=== PATIENT | female | born 1970 | race Caucasian/White ===

== ENCOUNTER 2023-09-07 06:56 | Observation (INO) | payer BC, SELFPAY ==
[2023-09-07] VITALS (10 sets, daily range): BP systolic 126–155; BP diastolic 73–92; PULSE 67–90; RESP 12–20; TEMP 36–36.6; O2SAT 95–100; BMI 35.4; BMI 32.9
--- NOTE | ~2023-09-07 | CT_ITS ---
EXAMINATION: CT ABDOMEN AND PELVIS WITH CONTRAST CLINICAL INFORMATION: Pain COMPARISON: None available. TECHNIQUE: Multidetector volumetric images were obtained from the superior aspect of the liver through the pubic symphysis following administration 85 mL of Omnipaque 350 intravenous contrast. Sagittal and coronal reformatted images were obtained on the technologist's workstation. Oral contrast: No This CT examination was performed using dose optimization techniques as appropriate, variously including the following: *Automated exposure control *Adjustment of mA and/or kV according to patient size (this includes techniques or standardized protocols for targeted exams where dose is matched to indication/reason for exam; i.e. extremities or head) *Use of iterative reconstruction technique DLP: 675 mGy-cm FINDINGS: LUNG BASES: 4 mm nodule at the right lung base. Image 7 anterior. LIVER, GALLBLADDER, AND BILIARY TREE: Generalized low density adjacent the falciform ligament could be a vascular variant. Could be focal fatty change. Low-density lesion with some possible peripheral enhancement on coronal image 42. Measures 1 x 0.6 cm. Probable gallstones in the gallbladder PANCREAS: Unremarkable. SPLEEN: Unremarkable. ADRENAL GLANDS: Small density superior to left adrenal gland may be an exophytic nodule measuring 9 x 6 mm. Differential would include a small node in the region. KIDNEYS AND URETERS: Scattered areas of low attenuation in the kidneys may well represent evolving cystic change. No convincing evidence for solid lesion. There is no evidence for hydronephrosis. BLADDER: Bladder is thick-walled and irregular. Some surrounding soft tissue stranding GASTROINTESTINAL TRACT: The bowel pattern is felt to be nonobstructing. There is no free fluid. The proximal appendix is within normal limits. Distally the appendix is measuring a centimeter. Minimal soft tissue stranding adjacent ABDOMINAL WALL: Small parapelvic local herniation of fat. LYMPH NODES: No bulky adenopathy. VASCULAR: Unremarkable. PELVIC VISCERA: Unremarkable. OSSEOUS STRUCTURES: Unremarkable. CT/CT abdomen pelvis w IV con IMPRESSION: Thick-walled bladder with irregular contour. Cystitis cannot be excluded. The distal appendix measuring up to a centimeter could be mildly edematous with some mild soft tissue stranding adjacent. Correlation recommended clinically here. Otherwise the bowel pattern is nonobstructing. There is no free fluid. Other findings are as described above. Gallstones. Indeterminate areas of decreased attenuation liver. Recommend ultrasound to fully evaluate. 4 mm right basilar lung nodule. Follow-up per Fleischner criteria Small 9 x 6 mm superior left adrenal lesion versus a node immediately adjacent to the left adrenal. Etiology indeterminate. This cannot be said to be simple adenoma on this study Periumbilical herniation of fat. Fleischner guidelines were followed.
[2023-09-07 07:20] LABS: MANUAL DIFF FLAG NO
[2023-09-07 07:23] LABS: Basophils Absolute Auto 0.1 X10*3/uL (0.0-0.2); Basophils Percent Auto 0.5 % (0-2); Eosinophils Absolute Auto 0.2 X10*3/uL (0.0-0.4); Eosinophils Percent Auto 1.4 % (0-4); Hematocrit 42.5 % (37.0-47.0); Hemoglobin 14.8 g/dl (12.0-16.0); Imm Gran Abs Auto 0.04 X10*3/uL (0.00-0.03); Imm Gran Pct Auto 0.4 % (0.0-0.4); Lymphocytes Absolute Auto 0.9 X10*3/uL (1.2-4.9); Lymphocytes Percent Auto 8.2 % (20-40); Mean Corpuscular HGB Conc 34.8 g/dl (31.0-35.0); Mean Corpuscular Hemoglobin 31.1 pg (27.0-33.0); Mean Corpuscular Volume 89.3 fL (80.0-98.0); Mean Platelet Volume 10.8 fL (9.4-12.3); Monocytes Absolute Auto 0.4 X10*3/uL (0.1-1.2); Monocytes Percent Auto 3.6 % (2-11); Neutrophils Absolute Auto 9.4 x10*3/uL (2.0-8.3); Neutrophils Percent Auto 85.9 % (45-73); Platelet Count 217 X10*3/uL (160-400); Red Blood Count 4.76 X10*6/uL (4.20-5.50); Red Cell Distribution Width 12.1 % (11.0-16.0); White Blood Count 10.9 X10*3/uL (4.8-10.8)
--- NOTE | 2023-09-07 07:28 | ED.GENADULT ---
HPI - General Adult General Chief complaint: Abdominal Pain Stated complaint: Severe Abd Pain Time Seen by Provider: 09/07/23 07:27 Source: patient and family (patient's ) Mode of arrival: ambulatory Limitations: no limitations History of Present Illness ED Provider: Ifrah Chu PA-C HPI narrative: Patient is a 52 year old assigned female at with a history of HTN presenting to the emergency department today with abdominal pain, nausea, and vomiting. Patient states that she woke up at midnight with abdominal pain and then without any nausea, she vomited. Now feels nauseous. Patient denies any dizziness, lightheadedness, fever, chills, blurry vision, double vision, loss of vision, chest pain, difficulty breathing, shortness of breath, back pain, night sweats, pain with urination, increased urinary frequency, increased urinary urgency, blood in her urine or stool, syncope or a near syncopal episode, recent trauma or falls, bowel incontinence, bladder incontinence, bowel retention, bladder retention, or any other complaints at this time. Onset (ago): hour(s) Location: abdomen Radiation: non-radiation Severity: mild Severity scale (1-10): 5 Quality: aching Pain Consistency: constant Relieving factors: none Exacerbating factors: none Associated symptoms: nausea/vomiting Treatments prior to arrival: none Related Data Home Medications ?Medication ?Instructions ?Recorded ?Confirmed amlodipine 5 mg-benazepril 20 mg 1 cap PO DAILY 09/07/23 09/07/23 capsule bupropion HCl 300 mg 24 hr tablet, 300 mg PO DAILY 09/07/23 09/07/23 extended release cetirizine 10 mg tablet (Zyrtec) 10 mg PO DAILY PRN Allergy Symptoms 09/07/23 09/07/23 estradiol 0.01% (0.1 mg/gram) 1 g vaginal SUWE@0900 09/07/23 09/07/23 vaginal cream multivitamin 1 tab PO DAILY 09/07/23 09/07/23 Allergies Allergy/AdvReac Type Severity Reaction Status Date / Time No Known Allergies Allergy Verified 09/07/23 07:02 Review of Systems Constitutional: Constitutional: Reports no additional constitutional complaints, Denies chills, Denies fever(s) and Denies night sweats Eyes: Eyes: Reports no additional eye complaints, Denies blurry vision, Denies change in vision, Denies diplopia, Denies eye discharge, Denies loss of vision and Denies eye pain ENT: Denies dizziness Cardiovascular: Cardiovascular: Reports no additional cardiovascular complaints, Denies chest pain, Denies lightheadedness, Denies Loss of Consciousness and Denies dyspnea Respiratory: Respiratory: Reports no additional respiratory complaints and Denies dyspnea Gastrointestinal: Gastrointestinal: Reports no additional gastrointestinal complaints, Reports abdominal pain, Denies melena, Denies hematochezia, Denies change in bowel habits, Denies change in stool character, Reports nausea and Reports vomiting Genitourinary: Genitourinary: Denies hematuria, Denies urinary frequency, Denies dysuria, Denies urinary incontinence, Denies urinary hesitancy and Denies urinary urgency Musculoskeletal: Musculoskeletal: Reports no additional musculoskeletal complaints, Denies numbness and Denies tingling Neurologic: Denies dizziness, Denies loss of vision, Denies numbness and Denies tingling Psychiatric: Psychiatric: Reports no additional psychiatric complaints Endocrine: Endocrine: Reports no additional endocrine complaints Hematologic/Lymphatic: Hematologic/Lymphatic: Reports no additional hematologic/lymphatic complaints Allergic/Immunologic: Allergic/Immunologic: Reports no additional allergic/immunologic complaints [facility] Past Medical History Attestation statement: The following information was validated with the patient. (patient's validated all information) Source: old records reviewed, obtained from family (patient's provided additional history and confirmed the history provided by the patient.) and nursing notes reviewed Surgical History History of Social History Social History Patient Tobacco Use Status: Never used Tobacco Second Hand Smoke Exposure: No Use of substances other than those prescribed or required for medical reasons: No Are you DNR?: No Advance Directives: No Advance Directives Information Provided: No (Declined) Advance Directives on File: No Do you have a plan to hurt others: No Plan Patient : No Physical Exam ED Vital Signs: Vital Signs - 24 hr 09/07/23 07:01 Temperature 97.8 F Pulse Rate 77 Respiratory Rate 20 Blood Pressure 149/92 H Pulse Oximetry 100 Oxygen Delivery Method Room Air BMI result Body Mass Index 35.4 Const General: cooperative, no acute distress, alert and awake Nutritional Appearance: well nourished Orientation/consciousness: patient oriented x3 Limitations: no limitations HENMT Head: Yes normal to inspection and Yes atraumatic Ears: hearing grossly normal bilaterally and external ears normal General nose exam: Normal external nose present, no nasal discharge noted and no epistaxis Face and sinus: Yes normal facial exam, No abrasion and No laceration Mouth: Normal oral and palatal mucosa present, no drooling and no muffled voice Eyes General: appearance normal, both eyes and all related structures Periorbital: periorbital findings normal Eyelids: Yes eyelids normal Conjunctivae: conjunctivae normal Pupils: Equal, round and reactive pupils present EOM: EOMs intact bilaterally Neck Neck: Yes normal visual inspection, Yes full ROM and Yes no lymphadenopathy Chest Chest palpation & inspection: normal inspection of the chest Resp Effort & Inspection: normal respiratory effort and able to speak in complete sentences GI Inspection: Yes normal to inspection Palpation (GI): Soft to palpation, not firm, Tenderness to palpation present (GI) in the LLQ and in the RLQ, no guarding and not rigid Neuro General: patient oriented x3 and moves all extremities Cranial nerves: Yes Equal, round and reactive pupils present Cognition (Neuro): normal cognition Motor exam (neuro): 5/5 motor strength present throughout Sensory Exam: Normal double simultaneous stimulation for sensation Coordination: [id number] test normal Extrem General: Yes normal to inspection, Yes full ROM and Yes capillary refill normal Psych Appearance: grossly normal Mental Status: mental status grossly normal Affect: normal affect Attitude: cooperative Thought process: Normal thought process present Thought content: Normal thought content present Insight: Good insight present (Psych) Medications Administered Generic Name Dose Route Start Last Admin Trade Name Freq PRN Reason Stop Dose Admin Hydromorphone HCl 0.5 mg 09/07/23 11:12 09/07/23 12:02 Hydromorphone Hcl 1 Mg/Ml Syringe SUBCUT 0.5 mg Q4H PRN Administration Pain, Severe (Pain Scale 7-10) Protocol Lactated Ringer's 1,000 mls @ 80 mls/hr 09/07/23 11:15 09/07/23 11:37 Lr IVCONT 80 mls/hr .[id number] SCOT Administration Piperacillin Sod/Tazobactam 50 mls @ 100 mls/hr 09/07/23 12:00 09/07/23 11:57 Sod 3.375 gm/ Sodium Chloride IV 100 mls/hr Q6H SCOT Administration Discontinued Medications Generic Name Dose Route Start Last Admin Trade Name Eden PRN Reason Stop Dose Admin Ceftriaxone Sodium 1 gm/ 50 mls @ 100 mls/hr 09/07/23 10:29 09/07/23 11:50 Sodium Chloride IV 09/07/23 10:58 Infused ONCE ONE Infusion Iohexol 100 ml 09/07/23 08:10 09/07/23 08:10 Iohexol 350 Mg/Ml 100 Ml Infus..Btl IV 09/07/23 08:11 85 ml ONCE ONE Administration Morphine Sulfate 4 mg 09/07/23 07:32 09/07/23 07:39 Morphine Sulfate 4 Mg/Ml Cartridge IVPUSH 09/07/23 07:33 4 mg ONCE ONE Administration Protocol Morphine Sulfate 4 mg 09/07/23 09:22 09/07/23 09:36 Morphine Sulfate 4 Mg/Ml Cartridge IVPUSH 09/07/23 09:23 4 mg ONCE ONE Administration Protocol Ondansetron HCl 4 mg 09/07/23 07:32 09/07/23 07:37 Ondansetron Hcl 4 Mg/2 Ml Vial IVPUSH 09/07/23 07:33 4 mg ONCE ONE Administration Medical Decision Making Medical Decision Making MDM Narrative: Patient is a 52 year old assigned female at with a history of HTN presenting to the emergency department today with abdominal pain, nausea, and vomiting. Patient's physical exam showed lower abdominal pain upon palpation. Patient's blood work showed a minimal elevation of WBC count of 10.9 but were otherwise unremarkable. Patient's urine showed no acute process. Patient's abdomen/pelvis CT showed evidence of early appendicitis. I spoke to the surgical team who agreed to admission and stated they would likely be taking the patient to the OR at 1230. Patient was given multiple doses of IV pain medication as well as IV antibiotics. Patient's clinical presentation is not consistent with sepsis (@1100). I explained my physical exam findings as well as all test results to the patient and the patient's . I answered all questions asked by the patient and the patient's . Patient [and the patient's] verbalized agreement and understanding with this treatment plan and [discharge/transfer/admission]. Differential Diagnosis Differential Diagnoses: The differential diagnosis associated with the presentation includes Appendicitis Diverticulitis Abdominal pain Nausea Vomiting UTI Admission/Observation Consideration of admission/observation: Escalation of care including admission/observation considered Patient admitted to surgical service. Consult Healthcare Provider Management of the patient was discussed with: Land Developer (spoke to the surgical service as noted in the MDM Rationale portion of this note.) Lab Data [facility] Lab Attestation statement: I reviewed the patient's lab results. My interpretation of these results are in the MDM Rationale portion of this note. 09/07/23 07:15 09/07/23 07:15 Labs: Lab Results 09/07/23 09/07/23 09/07/23 Range/Units 07:15 07:25 10:58 WBC 10.9 H (4.8-10.8) X10*3/uL RBC 4.76 (4.20-5.50) X10*6/uL Hgb 14.8 (12.0-16.0) g/dl Hct 42.5 (37.0-47.0) % MCV 89.3 (80.0-98.0) fL MCH 31.1 (27.0-33.0) pg MCHC 34.8 (31.0-35.0) g/dl RDW 12.1 (11.0-16.0) % Plt Count 217 (160-400) X10*3/uL MPV 10.8 (9.4-12.3) fL Immature Gran % (Auto) 0.4 (0.0-0.4) % Neut % (Auto) 85.9 H (45-73) % Lymph % (Auto) 8.2 L (20-40) % [place] % (Auto) 3.6 (2-11) % Eos % (Auto) 1.4 (0-4) % Baso % (Auto) 0.5 (0-2) % Lymph # (Auto) 0.9 L (1.2-4.9) X10*3/uL [place] # (Auto) 0.4 (0.1-1.2) X10*3/uL Eos # (Auto) 0.2 (0.0-0.4) X10*3/uL Baso # (Auto) 0.1 (0.0-0.2) X10*3/uL Abs Immat Gran (auto) 0.04 H (0.00-0.03) X10*3/uL Absolute Neuts (auto) 9.4 H (2.0-8.3) x10*3/uL Absolute Nucleated RBC 0.000 (0.0-0.012) X10*3/uL Nucleated RBC % (auto) 0.0 (0.0-0.2) /100WBC Sodium 140 (135-145) mmol/L Potassium 4.0 (3.3-5.1) mmol/L Chloride 106 (96-108) mmol/L Carbon Dioxide 26 (22-29) mmol/L Anion Gap 12 (12-20) BUN 11 (9-16) mg/dL Creatinine 0.78 (0.5-1.4) mg/dL Estim Creat Clear Calc 87.7 Estimated GFR > 60 Random Glucose 132 H (60-115) mg/dL Lactic Acid 0.7 (0.5-2.0) mmol/L Calcium 10.0 (8.4-10.2) mg/dL Total Bilirubin 0.6 (0.0-1.0) mg/dL Direct Bilirubin 0.2 (0.0-0.5) mg/dL AST 27 (5-31) U/L ALT 41 H (0-31) U/L Alkaline Phosphatase 79 (39-117) U/L Total Protein 7.1 (6.5-8.0) g/dL Albumin 4.5 (3.5-5.0) g/dL Lipase 18 (8-78) U/L Urine Color Yellow Urine Appearance Clear Urine pH 6.5 (5.0-9.0) Ur Specific [place] 1.020 (1.005-1.025) Urine Protein Negative (Neg-Trace) mg/dL Urine Glucose (UA) Negative (Negative) mg/dL Urine Ketones Negative (Negative) mg/dL Urine Blood Negative (Negative) Urine Nitrite Negative (Negative) Ur Leukocyte Esterase Negative (Negative) Blood Type A Negative Antibody Screen NEGATIVE Independent Interpretation I performed an independent interpretation of an: CT Scan Interpretation: My interpretation is in agreement with the radiologist's impression of this imaging study. EXAMINATION: CT ABDOMEN AND PELVIS WITH CONTRAST CLINICAL INFORMATION: Pain COMPARISON: None available. TECHNIQUE: Multidetector volumetric images were obtained from the superior aspect of the liver through the pubic symphysis following administration 85 mL of Omnipaque 350 intravenous contrast. Sagittal and coronal reformatted images were obtained on the technologist's workstation. Oral contrast: No This CT examination was performed using dose optimization techniques as appropriate, variously including the following: *Automated exposure control *Adjustment of mA and/or kV according to patient size (this includes techniques or standardized protocols for targeted exams where dose is matched to indication/reason for exam; i.e. extremities or head) *Use of iterative reconstruction technique DLP: 675 mGy-cm FINDINGS: LUNG BASES: 4 mm nodule at the right lung base. Image 7 anterior. LIVER, GALLBLADDER, AND BILIARY TREE: Generalized low density adjacent the falciform ligament could be a vascular variant. Could be focal fatty change. Low-density lesion with some possible peripheral enhancement on coronal image 42. Measures 1 x 0.6 cm. Probable gallstones in the gallbladder PANCREAS: Unremarkable. SPLEEN: Unremarkable. ADRENAL GLANDS: Small density superior to left adrenal gland may be an exophytic nodule measuring 9 x 6 mm. Differential would include a small node in the region. KIDNEYS AND URETERS: Scattered areas of low attenuation in the kidneys may well represent evolving cystic change. No convincing evidence for solid lesion. There is no evidence for hydronephrosis. BLADDER: Bladder is thick-walled and irregular. Some surrounding soft tissue stranding GASTROINTESTINAL TRACT: The bowel pattern is felt to be nonobstructing. There is no free fluid. The proximal appendix is within normal limits. Distally the appendix is measuring a centimeter. Minimal soft tissue stranding adjacent ABDOMINAL WALL: Small parapelvic local herniation of fat. LYMPH NODES: No bulky adenopathy. VASCULAR: Unremarkable. PELVIC VISCERA: Unremarkable. OSSEOUS STRUCTURES: Unremarkable. CT/CT abdomen pelvis w IV con IMPRESSION: Thick-walled bladder with irregular contour. Cystitis cannot be excluded. The distal appendix measuring up to a centimeter could be mildly edematous with some mild soft tissue stranding adjacent. Correlation recommended clinically here. Otherwise the bowel pattern is nonobstructing. There is no free fluid. Other findings are as described above. Gallstones. Indeterminate areas of decreased attenuation liver. Recommend ultrasound to fully evaluate. 4 mm right basilar lung nodule. Follow-up per Fleischner criteria Small 9 x 6 mm superior left adrenal lesion versus a node immediately adjacent to the left adrenal. Etiology indeterminate. This cannot be said to be simple adenoma on this study Periumbilical herniation of fat. Fleischner guidelines were followed. Dictated By: Rico Koo MD Signed By: Electronically signed by Rico Koo MD 09/07/23 1024 Radiology Impression Discussion of test interpretation with radiology: I have reviewed the radiologist's reading. Independent Historian Clinical information obtained from an independent historian. History obtained from or confirmed by: Spouse (patient's provided additional history and confirmed the history provided by the patient.) Chronic Conditions Patient?s care impacted by: Hypertension Critical Care Time Critical Care Time Critical Care Time: Yes Total Critical Care Time: 81 Attestation: I spent 81 minutes of Critical Care Time with this patient. This does not include time spent on separately reported billable procedures. Discharge Plan Discharge Clinical Impression: Acute appendicitis Patient Disposition: Admitted As Inpatient
[2023-09-07 07:30] LABS: Appearance Urine Clear; Color Urine Yellow; Glucose Urine UA Negative (Negative); Leukocyte Esterase Urine Negative (Negative); Nitrite Urine Negative (Negative); PH 6.5 (5.0-9.0); Urine Blood Negative (Negative); Urine Ketones Negative (Negative); Urine Protein Negative (Neg-Trace)
[2023-09-07 07:37] LABS: Alanine Aminotransferase 41 U/L (0-31); Albumin Level 4.5 g/dL (3.5-5.0); Alkaline Phosphatase 79 U/L (39-117); Anion Gap 12 (12-20); Aspartate Amino Transferase 27 U/L (5-31); Bilirubin Direct 0.2 mg/dL (0.0-0.5); Bilirubin Total 0.6 mg/dL (0.0-1.0); Blood Urea Nitrogen 11 mg/dL (9-16); Carbon Dioxide 26 mmol/L (22-29); Chloride 106 mmol/L (96-108); Creatinine Clr Calc Pharmacy 87.7; Estimated Glomerular Filt Rate > 60; Glucose Random 132 mg/dL (60-115); Lipase 18 U/L (8-78); Sodium 140 mmol/L (135-145); Total Protein 7.1 g/dL (6.5-8.0)
[2023-09-07] MEDS: ondansetron HCL 4 MG/2 ML VIAL IVPUSH ×2 (07:37→14:50)
[2023-09-07] MEDS: Morphine Sulfate 4 MG/ML CARTRIDGE IVPUSH ×2 (07:39→09:36)
[2023-09-07] MEDS: iohexoL 350 MG/ML 100 ML INFUS..BTL IV (08:10)
--- NOTE | 2023-09-07 09:06 | PC.NURSE ---
Patient reports feeling better , awaiting CT results
--- NOTE | 2023-09-07 11:15 | P.HPGS_ITS ---
History of Present Illness History of Present Illness Date of Service: 09/07/23 <Vane Xavier PA-C - Last Filed: 09/07/23 11:27> 09/08/23 <Jese García MD - Last Filed: 09/08/23 08:48> Chief complaint: acute appendicitis <Vane Xavier PA-C - Last Filed: 09/07/23 11:27> Narrative: China Duke is a 52 year old female with PMH of depression and HTN who presented to the ED early this morning with complaints of abdominal pain. She reports sudden onset of lower abdominal pain last night around midnight that woke her out of sleep. It was severe and sharp in nature. She reports the pain persisted and settled more into the right lower quadrant. She vomited once. She denies fevers, diarrhea, constipation, dysuria. She denies previous episodes of similar pain. Due to the severity of pain she presented to the ED for further evaluation. Work up included CBC, BMP, LFTs which was significant for l eukocytosis of 10.9. CT scan abd/pelvis was obtained which showed mildly thickened distal appendix with mild surrounding soft tissue stranding. She reports continued RLQ pain this morning, somewhat relieved with analgesics. <Vane Xavier PA-C - Last Filed: 09/07/23 11:27> Review of Systems Constitutional: Constitutional: Denies chills and Denies fever(s) <Vane Xavier PA-C - Last Filed: 09/07/23 11:27> ENT: Denies dizziness <Vane Xavier PA-C - Last Filed: 09/07/23 11:27> Cardiovascular: Cardiovascular: Denies chest pain and Denies dyspnea <Vane Xavier PA-C - Last Filed: 09/07/23 11:27> Respiratory: Respiratory: Denies dyspnea <TAM Quinonez Last Filed: 09/07/23 11:27> Gastrointestinal: Gastrointestinal: Reports as per HPI <TAM Quinonez Last Filed: 09/07/23 11:27> Genitourinary: Genitourinary: Denies hematuria and Denies dysuria <Vane Xavier PA-C - Last Filed: 09/07/23 11:27> Musculoskeletal: Musculoskeletal: Denies numbness <ANNETTA Quinonez Last Filed: 09/07/23 11:27> Integumentary/Breasts: Skin/Breast: Denies rash and Denies jaundice <TAM Quinonez Last Filed: 09/07/23 11:27> Neurologic: Denies dizziness and Denies numbness <TAM Quinonez Last Filed: 09/07/23 11:27> [facility] Surgical History Surgical History: Surgical History History of <TAM Quinonez Last Filed: 09/07/23 11:27> Social History Social History: Social History Patient Tobacco Use Status: Never used Tobacco Second Hand Smoke Exposure: No Use of substances other than those prescribed or required for medical reasons: No Currently Displaying Signs/Symptoms of Drug Intoxication Withdrawal: No Are you DNR?: No Advance Directives: No Advance Directives Information Provided: No (Declined) Advance Directives on File: No Do you have a plan to hurt others: No Plan Patient : No <TAM Quinonez Last Filed: 09/07/23 11:27> Meds Allergies/Adverse reactions: Allergies Allergy/AdvReac Type Severity Reaction Status Date / Time No Known Allergies Allergy Verified 09/07/23 07:02 <TAM Quinonez Last Filed: 09/07/23 11:27> Active Medications: Current Medications Acetaminophen (Acetaminophen 325 Mg Tablet) 650 mg PO Q6H PRN PRN Reason: Pain, Mild (Pain Scale 1-3) Hydromorphone HCl (Hydromorphone Hcl 1 Mg/Ml Syringe) 0.5 mg SUBCUT Q4H PRN; Protocol PRN Reason: Pain, Severe (Pain Scale 7-10) Lactated Ringer's (Lr) 1,000 mls @ 80 mls/hr IVCONT .[id number] [facility]OT Piperacillin Sod/Tazobactam (Sod 3.375 gm/ Sodium Chloride) 50 mls @ 100 mls/hr IV Q6H [facility]OT Ondansetron HCl (Ondansetron Hcl 4 Mg/2 Ml Vial) 4 mg IVPUSH Q8H PRN PRN Reason: Nausea and Vomiting Oxycodone HCl (Oxycodone Hcl Immed Release 5 Mg Tablet) 5 mg PO Q4H PRN PRN Reason: Pain, Moderate(Pain Scale 4-6) Sodium Chloride (0.9 % Sodium Chloride Flush 3 Ml Syringe) 3 ml IVFLUSH QSHIFT SCOT <TAM Quinonez Last Filed: 09/07/23 11:27> Home medications: Home Medications ?Medication ?Instructions ?Recorded ?Confirmed ?Last Taken ?Type amlodipine 5 mg-benazepril 20 mg 1 cap PO DAILY 09/07/23 09/07/23 09/06/23 History capsule bupropion HCl 300 mg 24 hr tablet, 300 mg PO DAILY 09/07/23 09/07/23 09/06/23 History extended release cetirizine 10 mg tablet (Zyrtec) 10 mg PO DAILY PRN Allergy Symptoms 09/07/23 09/07/23 09/06/23 History estradiol 0.01% (0.1 mg/gram) 1 g vaginal SUWE@0900 09/07/23 09/07/23 09/06/23 History vaginal cream multivitamin 1 tab PO DAILY 09/07/23 09/07/23 09/06/23 History <TAM Quinonez Last Filed: 09/07/23 11:27> Physical Exam Vital Signs: Vital Signs: Last Vital Signs Temp 97.8 F 09/07/23 07:01 Pulse 77 09/07/23 07:01 Resp 20 09/07/23 07:01 BP 149/92 H 09/07/23 07:01 Pulse Ox 100 09/07/23 07:01 O2 Del Method Room Air 09/07/23 07:01 BMI result Body Mass Index 35.4 <TAM Quinonez Last Filed: 09/07/23 11:27> Const: General: comfortable, no acute distress and alert <TAM Quinonez Last Filed: 09/07/23 11:27> Orientation/consciousness: patient oriented x3 <Vane TAM Xavier Olivia Last Filed: 09/07/23 11:27> Resp: Effort & Inspection: normal respiratory effort <Vane DucTAM taylor Olivia Last Filed: 09/07/23 11:27> GI: Inspection: No distended and Yes scar (well healed pfannensteil) <Vane Xavier PA-C Olivia Last Filed: 09/07/23 11:27> Palpation (GI): Soft to palpation, Tenderness to palpation present (GI) in the RLQ (marked ) and at McBurney's point; with no rebound tenderness and Rovsing's sign negative and no guarding <Vane TAM Xavier Olivia Last Filed: 09/07/23 11:27> Percussion: Yes normal to percussion <Vanemanda Xavier PA-C Olivia Last Filed: 09/07/23 11:27> Skin: General skin exam: no rashes or lesions noted and no jaundice <Vane Xavier PA-C Olivia Last Filed: 09/07/23 11:27> Neuro: General: patient oriented x3 and moves all extremities <Vane Xavier PA-C Olivia Last Filed: 09/07/23 11:27> Results Results Labs: Short CBC 09/07/23 Range/Units 07:15 WBC 10.9 H (4.8-10.8) X10*3/uL Hgb 14.8 (12.0-16.0) g/dl Hct 42.5 (37.0-47.0) % Plt Count 217 (160-400) X10*3/uL BMP 09/07/23 07:15 Sodium 140 Potassium 4.0 Chloride 106 Carbon Dioxide 26 BUN 11 Creatinine 0.78 Calcium 10.0 Liver Function 09/07/23 Range/Units 07:15 Total Bilirubin 0.6 (0.0-1.0) mg/dL Direct Bilirubin 0.2 (0.0-0.5) mg/dL AST 27 (5-31) U/L ALT 41 H (0-31) U/L Alkaline Phosphatase 79 (39-117) U/L Albumin 4.5 (3.5-5.0) g/dL Urine 09/07/23 Range/Units 07:25 Urine Color Yellow Urine Appearance Clear Urine pH 6.5 (5.0-9.0) Ur Specific [place] 1.020 (1.005-1.025) Urine Protein Negative (Neg-Trace) mg/dL Urine Glucose (UA) Negative (Negative) mg/dL <Vane Xavier PA-C - Last Filed: 09/07/23 11:27> Abdomen CT scan report/results: report reviewed and image reviewed <TAM Quinonez Last Filed: 09/07/23 11:27> Assessment and Plan (1) Acute appendicitis: Status: Acute <TAM Quinonez Last Filed: 09/07/23 11:27> The patient describes umbilical pain starting last night, migrating to the right lower quadrant Currently has localized tenderness on right lower quadrant but otherwise benign findings She looks comfortable CT scan suggest acute appendicitis, non complicated I had a long discussion with her about option of proceeding with appendectomy versus nonoperative treatment with antibiotics Explained technique of laparoscopic appendectomy and possible open appendectomy I reviewed the risks including but not limited to bleeding, infections, injury to other organs including bowel, urinary tract, staple line leak, blood clots, pneumonia, abscess formation, as well as the benefits and alternatives I reviewed with her what to expect postoperatively She wants to proceed with the appendectomy Her was with her during the long discussion The patient was seen and examined independently <Jese García MD - Last Filed: 09/08/23 08:48> 52 year old female with PMH of depression and HTN who presented to the ED early this morning with complaints of acute onset lower abdominal pain now more localized to the RLQ associated with nausea with marked RLQ tenderness, leukoc ytosis with CT scan showing thickened distal appendix with mild surrounding fat stranding. History and imaging suggestive of acute appendicitis, likely early. Treatment options were discussed including observation and antibiotic therapy versus proceeding with laparoscopic appendectomy, possible open. She would like to go ahead with surgery. Risks, benefits, alternatives of laparoscopic possible open appendectomy were reviewed with the patient and included but not limited to bleeding, infection, numbness, pain, scarring, bowel or bladder injury or leak and the patient wishes to proceed. She was added onto the OR schedule for today. <TAM Quinonez Last Filed: 09/07/23 11:27> Quality Stroke Does the patient have a stroke diagnosis?: No <Vane Xavier PA-C - Last Filed: 09/07/23 11:27> VTE Prior VTE?: No <Vane Xavier PA-C - Last Filed: 09/07/23 11:27> VTE Risk Level:: Surgical - moderate <Vane Xavier PA-C - Last Filed: 09/07/23 11:27> VTE Device Contraindication: N/A - Device Ordered <Vane Xavier PA-C - Last Filed: 09/07/23 11:27> VTE Drug Contraindication: N/A - Med Ordered <Vane Xavier PA-C - Last Filed: 09/07/23 11:27> Procedures Date of Service Date of Service: 09/07/23 <Vane Xavier PA-C - Last Filed: 09/07/23 11:27> 09/08/23 <Jese García MD - Last Filed: 09/08/23 08:48>
[2023-09-07 11:16] LABS: Lactic Acid 0.7 mmol/L (0.5-2.0)
[2023-09-07] MEDS: cefTRIAXone sodium 1 GM in 0.9 % Sodium Chloride 50 ML IV (11:19)
[2023-09-07] MEDS: Lactated Ringers 1,000 ML 80 ML IVCONT ×2 (11:37→16:55)
--- NOTE | 2023-09-07 11:42 | PHA.MEDREC ---
Pharmacy Consult ? Medication Reconciliation Pharmacy has completed the medication reconciliation. Reviewed list with patient. Patient on estrodiol cream uses it Sun and Wed. Patient states they are not taking the dulera inhaler anymore.
--- NOTE | 2023-09-07 11:51 | PC.NURSE ---
Report given to SSS
[2023-09-07] MEDS: Piperacillin Sodium/Tazobactam 3.375 GM in 0.9 % Sodium Chloride 50 ML IV (11:57)
[2023-09-07] MEDS: HYDROmorphone HCl 1 MG/ML SYRINGE 0.5 MG SUBCUT (12:02)
--- NOTE | 2023-09-07 12:24 | P.CONAN_ITS ---
[facility], LAT[facility] Active Problems Active Problems: All Active Problems Acute appendicitis (Acute) Hypertension (Acute) Past Medical History Functional capacity: independent ambulation Patient : No Family History Family history of problems with anesthesia: No Surgical History Surgical History History of History of Problems with Anesthesia: No Social History Social History Advance Directives: No Do you have a plan to hurt others: No Plan Meds Allergies Allergy/AdvReac Type Severity Reaction Status Date / Time No Known Allergies Allergy Verified 09/07/23 07:02 Active Medications: Current Medications Acetaminophen (Acetaminophen 325 Mg Tablet) 650 mg PO Q6H PRN PRN Reason: Pain, Mild (Pain Scale 1-3) Hydromorphone HCl (Hydromorphone Hcl 1 Mg/Ml Syringe) 0.5 mg SUBCUT Q4H PRN; Protocol PRN Reason: Pain, Severe (Pain Scale 7-10) Last Admin: 09/07/23 12:02 Dose: 0.5 mg Lactated Ringer's (Lr) 1,000 mls @ 80 mls/hr IVCONT .[id number] [facility] Last Admin: 09/07/23 11:37 Dose: 80 mls/hr Piperacillin Sod/Tazobactam (Sod 3.375 gm/ Sodium Chloride) 50 mls @ 100 mls/hr IV Q6H [facility] Last Admin: 09/07/23 11:57 Dose: 100 mls/hr Ondansetron HCl (Ondansetron Hcl 4 Mg/2 Ml Vial) 4 mg IVPUSH Q8H PRN PRN Reason: Nausea and Vomiting Oxycodone HCl (Oxycodone Hcl Immed Release 5 Mg Tablet) 5 mg PO Q4H PRN PRN Reason: Pain, Moderate(Pain Scale 4-6) Sodium Chloride (0.9 % Sodium Chloride Flush 3 Ml Syringe) 3 ml IVFLUSH QSHIFT [facility] Home Medications ?Medication ?Instructions ?Recorded ?Confirmed ?Last Taken ?Type amlodipine 5 mg-benazepril 20 mg 1 cap PO DAILY 09/07/23 09/07/23 09/06/23 History capsule bupropion HCl 300 mg 24 hr tablet, 300 mg PO DAILY 09/07/23 09/07/23 09/06/23 History extended release cetirizine 10 mg tablet (Zyrtec) 10 mg PO DAILY PRN Allergy Symptoms 09/07/23 09/07/23 09/06/23 History estradiol 0.01% (0.1 mg/gram) 1 g vaginal SUWE@0900 09/07/23 09/07/23 09/06/23 History vaginal cream multivitamin 1 tab PO DAILY 09/07/23 09/07/23 09/06/23 History Exam Height,Weight and Vital Signs: Height 5 ft 2 in Weight 87.8 kg Last Vital Signs Temp 97.8 F 09/07/23 07:01 Pulse 77 09/07/23 07:01 Resp 20 09/07/23 07:01 BP 149/92 H 09/07/23 07:01 Pulse Ox 100 09/07/23 07:01 O2 Del Method Room Air 09/07/23 07:01 Pertinent Lab Results Pertinent Lab Results: Laboratory Tests 09/07/23 09/07/23 09/07/23 07:15 07:25 10:58 WBC 10.9 H RBC 4.76 Hgb 14.8 Hct 42.5 MCV 89.3 MCH 31.1 MCHC 34.8 RDW 12.1 Plt Count 217 MPV 10.8 Immature Gran % (Auto) 0.4 Neut % (Auto) 85.9 H Lymph % (Auto) 8.2 L [place] % (Auto) 3.6 Eos % (Auto) 1.4 Baso % (Auto) 0.5 Lymph # (Auto) 0.9 L [place] # (Auto) 0.4 Eos # (Auto) 0.2 Baso # (Auto) 0.1 Abs Immat Gran (auto) 0.04 H Absolute Neuts (auto) 9.4 H Absolute Nucleated RBC 0.000 Nucleated RBC % (auto) 0.0 Sodium 140 Potassium 4.0 Chloride 106 Carbon Dioxide 26 Anion Gap 12 BUN 11 Creatinine 0.78 Estim Creat Clear Calc 87.7 Estimated GFR > 60 Random Glucose 132 H Lactic Acid 0.7 Calcium 10.0 Total Bilirubin 0.6 Direct Bilirubin 0.2 AST 27 ALT 41 H Alkaline Phosphatase 79 Total Protein 7.1 Albumin 4.5 Lipase 18 Urine Color Yellow Urine Appearance Clear Urine pH 6.5 Ur Specific [place] 1.020 Urine Protein Negative Urine Glucose (UA) Negative Urine Ketones Negative Urine Blood Negative Urine Nitrite Negative Ur Leukocyte Esterase Negative Blood Type A Negative Antibody Screen NEGATIVE Airway Mallampati Class: II TM Dist: >3cm Neck ROM: Full Heart: RRR Lungs: CTA Assessment and Plan Assessment Anesthesia Assessment: Anesthesia Plan Discussed Final Anesthetic Review Family History of Problems with Anesthesia: No History of Problems with Anesthesia: No NPO: Yes ASA Class: II Final Preanesthetic Review: Meds/Allgs Chart Reviewed, Consent Obtained/Reviewed and Anes Risks/Benef Reviewed Patient Risk: Low Procedure Risk: Low Anesthetic Plan Anesthetic Plan: GA Disposition: Standard PACU
--- NOTE | 2023-09-07 13:50 | P.OP_ITS ---
Operative Note Operative Note Date of Service: 09/07/23 Narrative: Preop diagnosis: Acute appendicitis Postop diagnosis: acute appendicitis, with severe erythema and induration on the distal 3rd Procedure: Laparoscopic appendectomy Surgeon: Jese García MD executive assistant to general counsel: JG Xavier The patient is a 52 year old female with large lower quadrant pain and tenderness who had a CT scan in the ER showing findings consistent with acute appendicitis distally. She understood the technique of laparoscopic appendectomy. She was aware of the risks, benefits, and alternatives and wanted to proceed. She was brought to the operating room. She was placed supine under general anesthesia via endotracheal tube. A Patel catheter was inserted. The abdomen was prepped and draped in the usual sterile fashion. A surgical time-out was done. The patient was receiving scheduled IV antibiotics. I made a short infraumbilical incision on the midline using a blade 15. This carried down through the full-thickness of the thick subcutaneous fat down to the fascia. The fascia was incised. The peritoneum was entered. Through this incision a Banerjee port was introduced. Pneumoperitoneum was introduced to a pressure of 15 mm Hg. From here on the rest of procedure was done under vision with the 5 mm laparoscope With laparoscopic visualization I inserted a 5 mm port in the left lower quadrant through a small stab incision. A 5 mm port introduced through a small incision in the suprapubic margin. The patient was placed in a head down and [id number] position. Graspers were placed through this working ports. The cecum was seen. By following this, we are able to visualize the appendix. The distal 3rd of the appendix was very indurated and erythematous consistent with acute appendicitis. The proximal part of the appendix was then inflamed. I applied a grasper gently on the distal 3rd of the appendix to put this on stretch. By doing so was able to visualize the base of the appendix. I gently dissected this circumferentially to separate the mesoappendix. By putting this on stretch, the mesoappendix appeared to had some bleeding so I had to apply the LigaSure across this. I then proceeded to define the rest of the base of the appendix. I used an Endo-DIONICIO 30 mm stapler across the base through the umbilical port and this was fired. The appendix was then dissected completely. I divided the rest of the attachments on the mesoappendix . The appendix was completely and was retrieved through an endobag through the umbilical incision. I reinserted all ports and re-insufflated. I examined the area of dissection. There was note of some oozing on the fat adjacent to the staple line which probably was part of the mesoappendix so I applied clips across this. We observed for about 5 minutes and there was no further bleeding from the area. There was note of good hemostasis. I suctioned out or the old blood and irrigated a little bit. I suctioned his other again fluid and this appeared to be clear. I examined all 4 quadrants. There was no other pathology. There was no evidence of any bowel injury. I examined the area of dissection again and this remained hemostatic. I positioned part of the omentum towards this Once hemostasis was confirmed, I desufflated through the port sites and removed all ports under vision with laparoscope. The umbilical port was removed last The fascia of the umbilical incision was closed with a [id number] Polysorb 0 stitch. Skin closure was achieved on all incisions using Polysorb 4-0 subcuticular sutures. All incisions were infiltrated with Marcaine 0.5% for postop analgesia. Dressings were applied. The procedure was completed The patient tolerated the procedure well. There were no immediate complications. Initial and final counts of sponges and instruments were correct. Estimated blood loss was about 75 cc The patient was extubated without difficulty and transferred to the recovery room with stable vital signs.
[2023-09-07] MEDS: 0.9 % Sodium Chloride Flush 3 ML SYRINGE IVFLUSH (16:54)
--- NOTE | 2023-09-07 17:19 | PM.EVENT ---
Event Note Date of Service: 09/08/23 Event Note: seen postop s/p lap appy looks comfortable seems to have good pain control stable VS diet as tolerated pain mgt poss. dc home tomorrow Time Spent With Patient Time: Total time managing care of this patient today ____ minutes.
[2023-09-07] MEDS: Promethazine HCL 25 MG/ML VIAL 12.5 MG IM (17:38)
[2023-09-07] MEDS: oxyCODONE HCl Immed Release 5 MG TABLET PO (20:28)
[2023-09-08] MEDS: Lactated Ringers 1,000 ML 80 ML IVCONT (03:44)
[2023-09-08 03:46] VITALS: BP 134/84; PULSE 70; RESP 16; TEMP 36; O2SAT 98
[2023-09-08 06:13] LABS: MANUAL DIFF FLAG NO
[2023-09-08 06:27] LABS: Basophils Percent Auto 0.1 % (0-2); Eosinophils Percent Auto 0.3 % (0-4); Hematocrit 41.7 % (37.0-47.0); Hemoglobin 14.1 g/dl (12.0-16.0); Imm Gran Abs Auto 0.03 X10*3/uL (0.00-0.03); Imm Gran Pct Auto 0.3 % (0.0-0.4); Mean Corpuscular HGB Conc 33.8 g/dl (31.0-35.0); Mean Corpuscular Hemoglobin 30.5 pg (27.0-33.0); Mean Corpuscular Volume 90.1 fL (80.0-98.0); Mean Platelet Volume 12.1 fL (9.4-12.3); Monocytes Absolute Auto 0.6 X10*3/uL (0.1-1.2); Monocytes Percent Auto 7.3 % (2-11); Neutrophils Absolute Auto 7.1 x10*3/uL (2.0-8.3); Platelet Count 162 X10*3/uL (160-400); Red Blood Count 4.63 X10*6/uL (4.20-5.50); Red Cell Distribution Width 12.2 % (11.0-16.0); White Blood Count 8.8 X10*3/uL (4.8-10.8)
[2023-09-08 07:11] VITALS: BP 142/85; PULSE 66; RESP 20; TEMP 36.1; O2SAT 98
[2023-09-08 07:31] VITALS: BP 142/85
[2023-09-08] MEDS: lisinopriL 20 MG TABLET PO (07:31)
[2023-09-08] MEDS: buPROPion HCl XL 300 MG TAB.ER.24H PO (07:31)
[2023-09-08] MEDS: amLODIPine Besylate 5 MG TABLET PO (07:31)
[2023-09-08] MEDS: 0.9 % Sodium Chloride Flush 3 ML SYRINGE IVFLUSH (07:33)
[2023-09-08] MEDS: oxyCODONE HCl Immed Release 5 MG TABLET PO (07:36)
--- NOTE | 2023-09-08 08:17 | P.PNGS_ITS ---
Subjective Subjective Date of Service: 09/08/23 <Vane Xavier PA-C - Last Filed: 09/08/23 08:22> 09/08/23 <Jese García MD - Last Filed: 09/08/23 08:47> Interval history: Feels well. Pain at incision sites but controlled. OOB and ambulating. Tolerating solid diet. <Vane Xavier PA-C - Last Filed: 09/08/23 08:22> Physical Exam 2 Vital Signs: Vital Signs: Last Vital Signs Temp 97.0 F 09/08/23 07:11 Pulse 66 09/08/23 07:11 Resp 20 09/08/23 07:11 BP 142/85 H 09/08/23 07:31 Pulse Ox 98 09/08/23 07:11 O2 Del Method Room Air 09/08/23 07:11 O2 Flow Rate 6 09/07/23 14:05 BMI result Body Mass Index 32.9 <Vane Xavier PA-C - Last Filed: 09/08/23 08:22> Const: General: comfortable, no acute distress and alert <Vane Xavier PA-C - Last Filed: 09/08/23 08:22> Orientation/consciousness: patient oriented x3 <TMA Quinonez Last Filed: 09/08/23 08:22> Resp: Effort & Inspection: normal respiratory effort <Vane Xavier PA-C - Last Filed: 09/08/23 08:22> GI: Inspection: No distended and Yes incision (dressings intact) <Vane Xavier PA-C - Last Filed: 09/08/23 08:22> Palpation (GI): Soft to palpation, Tenderness to palpation present (GI) (mild incisional) and no guarding <TAM Quinonez Last Filed: 09/08/23 08:22> Skin: General skin exam: no rashes or lesions noted <TAM Quinonez Last Filed: 09/08/23 08:22> Neuro: General: patient oriented x3 and moves all extremities <TAM Quinonez Last Filed: 09/08/23 08:22> Objective Data Active Medications Acetaminophen (Acetaminophen 325 Mg Tablet) 650 mg PO Q6H PRN PRN Reason: Pain, Mild (Pain Scale 1-3) Amlodipine Besylate (Amlodipine Besylate 5 Mg Tablet) 5 mg PO DAILY COUNT INCLUDES THE [facility] Last Admin: 09/08/23 07:31 Dose: 5 mg Documented By: TORITO Bupropion HCl (Bupropion Hcl Xl 300 Mg Tab.Er.24h) 300 mg PO DAILY COUNT INCLUDES THE [facility] Last Admin: 09/08/23 07:31 Dose: 300 mg Documented By: TORITO Docusate Sodium (Docusate Sodium 100 Mg Capsule) 100 mg PO BID PRN PRN Reason: constipation Hydromorphone HCl (Hydromorphone Hcl 1 Mg/Ml Syringe) 0.5 mg IVPUSH Q4H PRN; Protocol PRN Reason: Pain, Severe (Pain Scale 7-10) Lactated Ringer's (Lr) 1,000 mls @ 80 mls/hr IVCONT .[id number] COUNT INCLUDES THE [facility] Last Admin: 09/08/23 03:44 Dose: 80 mls/hr Documented By: KATRIN Lisinopril (Lisinopril 20 Mg Tablet) 20 mg PO DAILY COUNT INCLUDES THE [facility] Last Admin: 09/08/23 07:31 Dose: 20 mg Documented By: TORITO Magnesium Hydroxide (Milk Of Magnesia 30 Ml Oral.Susp) 30 ml PO TID PRN PRN Reason: heartburn Melatonin (Melatonin 3 Mg Tablet) 6 mg PO BEDTIME PRN PRN Reason: insomnia Ondansetron HCl (Ondansetron Hcl 4 Mg/2 Ml Vial) 4 mg IVPUSH Q6H PRN PRN Reason: Nausea and Vomiting Oxycodone HCl (Oxycodone Hcl Immed Release 5 Mg Tablet) 5 mg PO Q4H PRN PRN Reason: Pain, Moderate(Pain Scale 4-6) Last Admin: 09/08/23 07:36 Dose: 5 mg Documented By: TORITO Promethazine HCl (Promethazine Hcl 25 Mg/Ml Vial) 12.5 mg IM Q6H PRN PRN Reason: Nausea Last Admin: 09/07/23 17:38 Dose: 12.5 mg Documented By: CORTNEYAMER Sodium Chloride (0.9 % Sodium Chloride Flush 3 Ml Syringe) 3 ml IVFLUSH QSHIFT COUNT INCLUDES THE [facility] Last Admin: 09/08/23 07:33 Dose: 3 ml Documented By: TORITO <Vane Xavier PA-C - Last Filed: 09/08/23 08:22> Labs CBC & Chem 7: 09/08/23 05:39 09/07/23 07:15 <Vane Xavier PA-C - Last Filed: 09/08/23 08:22> Labs: Laboratory Results - last 24 hr 09/07/23 09/08/23 10:58 05:39 MCV 90.1 MCH 30.5 MCHC 33.8 RDW 12.2 Plt Count 162 D MPV 12.1 Immature Gran % (Auto) 0.3 Neut % (Auto) 81.0 H Lymph % (Auto) 11.0 L [place] % (Auto) 7.3 Eos % (Auto) 0.3 Baso % (Auto) 0.1 Lymph # (Auto) 1.0 L [place] # (Auto) 0.6 Eos # (Auto) 0.0 Baso # (Auto) 0.0 Abs Immat Gran (auto) 0.03 Absolute Neuts (auto) 7.1 Absolute Nucleated RBC 0.000 Nucleated RBC % (auto) 0.0 Lactic Acid 0.7 Blood Type A Negative Antibody Screen NEGATIVE <Vane Xavier PA-C - Last Filed: 09/08/23 08:22> Procedures Date of Service Date of Service: 09/08/23 <Vane Xavier PA-C - Last Filed: 09/08/23 08:22> 09/08/23 <Jese García MD - Last Filed: 09/08/23 08:47> Progress Note: A&P Assessment and plan (1) Acute appendicitis: Status: Acute <Vane Xavier PA-C - Last Filed: 09/08/23 08:22> Assessment and Plan: Feels well this morning Tolerating regular diet Minimal pain Abdomen soft and benign Okay to DC home today Instructions reviewed We will see in the office for follow-up Seen and examined independently <Jese García MD - Last Filed: 09/08/23 08:47> (2) S/P laparoscopic appendectomy: Status: Acute <Vane Xavier PA-C - Last Filed: 09/08/23 08:22> Assessment and Plan: POD #1 s/p lap appy. Doing well post op with good pain control, tolerating solid food. VSS. Abd exam benign with appropriate post op tenderness, dressings intact. Stable for dc to home today, f/u in office in 2 weeks. Patient comfortable with plan. <Vane Xavier PA-C - Last Filed: 09/08/23 08:22> Time Spent With Patient Time: Total time managing care of this patient today ____ minutes. <Vane Xavier PA-C - Last Filed: 09/08/23 08:22> Quality Stroke Does the patient have a stroke diagnosis?: No <Vane Xavier PA-C - Last Filed: 09/08/23 08:22> VTE Prior VTE?: No <Vane Xavier PA-C - Last Filed: 09/08/23 08:22> VTE Risk Level:: Surgical - moderate <Vane Xavier PA-C - Last Filed: 09/08/23 08:22> VTE Device Contraindication: N/A - Device Ordered <Vane Xavier PA-C - Last Filed: 09/08/23 08:22> VTE Drug Contraindication: N/A - Med Ordered <aVne Xavier PA-C - Last Filed: 09/08/23 08:22>
--- NOTE | 2023-09-08 09:09 | MHC.CM.PN ---
[facility] DELIVERED PT LIVES WITH [facility], INDEPENDENT/EMPLOYED F/T. +HCP ON FILE AT DR. HENRY'S OFFICE. DP: PT HAS BEEN MEDICALLY CLEARED FOR DC HOME, NO SERVICES. [facility] WILL TRANSPORT.
--- NOTE | 2023-09-08 10:32 | HO.POSTANES ---
Post Anesthesia Evaluation Post Anesthesia Evaluation Date of Service: 09/07/23 Vital Signs: Vital Signs Temp Pulse Resp BP Pulse Ox O2 Del Method 09/08/23 07:31 142/85 H 09/08/23 07:31 142/85 H 09/08/23 07:11 97.0 F 66 20 142/85 H 98 Room Air 09/08/23 03:46 96.8 F 70 16 134/84 98 Room Air 09/07/23 23:43 96.8 F 67 16 126/73 95 Room Air Anesthesia: General Endotracheal-GETA Mental Status: Awake Pain Control: Satisfactory Nausea/Vomiting: None Hydration: Adequate Anesthesia-Related Issues: No Anes. Related Issues
--- NOTE | 2023-09-08 11:16 | PM.DS ---
DS: Providers Provider Date of Service: 09/08/23 Date of admission: 09/07/23 11:12 Primary care physician: Hans Dean MD Attending physician on admission: Jese García Attending physician on discharge: Jese García DS: Diagnosis Discharge Diagnosis (1) Acute appendicitis: Status: Acute DS: Summary Hospital Course Hospital Course: HPI AT ADMISSION: China Duke is a 52 year old female with PMH of depression and HTN who presented to the ED early this morning with complaints of abdominal pain. She reports sudden onset of lower abdominal pain last night around midnight that woke her out of sleep. It was severe and sharp in nature. She reports the pain persisted and settled more into the right lower quadrant. She vomited once. She denies fevers, diarrhea, constipation, dysuria. She denies previous episodes of similar pain. Due to the severity of pain she presented to the ED for further evaluation. Work up included CBC, BMP, LFTs which was significant for leukocytosis of 10.9. CT scan abd/pelvis was obtained which showed mildly thickened distal appendix with mild surrounding soft tissue stranding. She reports continued RLQ pain this morning, somewhat relieved with analgesics. HOSPITAL COURSE: She was admitted to the surgical service for further treatment of the acute appendicitis. Treatment options were discussed and she elected to proceed with appendectomy. She was added onto the OR schedule for that day. On 09/07/23, a laparoscopic appendectomy was performed by Dr. García without complication. Patient tolerated the procedure well. She had an uncomplicated recovery course. On POD #1, she felt well with mild incisional pain but comfortable. She was tolerating a solid diet without nausea or vomiting. She was ambulating without difficulty. Her abdomen was benign with appropriate post op tenderness and clean and intact dressings. She felt ready for discharge. She was discharged to home on 09/08/23 in stable condition. She is to follow up in the office in 2 weeks. Status at Discharge Functional status at discharge: independent ambulation Overall status at discharge: patient is progressing back to baseline Time Attestation Discharge Coordination Time (in mins): 30 Quality: Safe Use of Opioids Does Pt have an Active Cancer Diagnosis on the Problem List?: No Quality: Stroke Does the patient have a stroke diagnosis?: No Physical Exam Vital Signs: Vital Signs: Last Vital Signs Temp 97.0 F 09/08/23 07:11 Pulse 66 09/08/23 07:11 Resp 20 09/08/23 07:11 BP 142/85 H 09/08/23 07:31 Pulse Ox 98 09/08/23 07:11 O2 Del Method Room Air 09/08/23 07:11 O2 Flow Rate 6 09/07/23 14:05 BMI result Body Mass Index 32.9 Const: General: comfortable, no acute distress and alert Orientation/consciousness: patient oriented x3 Resp: Effort & Inspection: normal respiratory effort GI: Inspection: No distended and Yes incision (dressings intact ) Palpation (GI): Soft to palpation and Tenderness to palpation present (GI) (mild incisional ) Skin: General skin exam: no rashes or lesions noted Neuro: General: patient oriented x3 and moves all extremities DS: Data Data Completed and Pending Pending studies at discharge: Pending at discharge 09/07/23 13:30 Surgical [PTH] Routine Labs on day of discharge: Laboratory Results - last 24 hr 09/07/23 09/08/23 10:58 05:39 WBC 8.8 RBC 4.63 Hgb 14.1 Hct 41.7 MCV 90.1 MCH 30.5 MCHC 33.8 RDW 12.2 Plt Count 162 D MPV 12.1 Immature Gran % (Auto) 0.3 Neut % (Auto) 81.0 H Lymph % (Auto) 11.0 L [place] % (Auto) 7.3 Eos % (Auto) 0.3 Baso % (Auto) 0.1 Lymph # (Auto) 1.0 L [place] # (Auto) 0.6 Eos # (Auto) 0.0 Baso # (Auto) 0.0 Abs Immat Gran (auto) 0.03 Absolute Neuts (auto) 7.1 Absolute Nucleated RBC 0.000 Nucleated RBC % (auto) 0.0 Lactic Acid 0.7 Blood Type A Negative Antibody Screen NEGATIVE Discharge Plan Discharge Patient Disposition: Home, Self-Care Discharge Diagnosis: acute appendicitis s/p laparoscopic appendectomy Referrals: Hans Dean MD [Primary Care Provider] - 1 Week Jese García MD [Physician] - 2 Weeks Discharge Medications: New docusate sodium [Colace] 100 mg capsule 100 mg PO BID PRN (Reason: constipation) Qty: 30 0RF oxycodone 5 mg tablet 5 mg PO Q4H PRN (Reason: pain (scale score 7-10)) Qty: 24 0RF Rx Instructions: Partial Fill upon patient request. Continued amlodipine-benazepril 5-20 mg capsule 1 cap PO DAILY estradiol 0.01 % (0.1 mg/gram) cream 1 g vaginal SUWE@0900 Rx Instructions: [facility] [place] bupropion HCl 300 mg tablet extended release 24 hr 300 mg PO DAILY multivitamin Tablet 1 tab PO DAILY cetirizine [Zyrtec] 10 mg Tablet 10 mg PO DAILY PRN (Reason: Allergy Symptoms) Discharge Orders: Discharge Order (Routine); Ordered 09/08/23 Ordered By: Vane Xavier Diet: Advance to usual diet Activity on Discharge: No heavy lifting Stand Alone Forms: Patient Portal Discharge page, Work/School Release Print Language: Citizen Of [place] Activity Restrictions/Additional Instructions: If the incision area is tender, you may apply an ice pack for short intervals (No more than 20 minutes on, followed by at least 20 minutes off). Do not apply heat. Do not use creams, lotions, or topical antibiotics. These can cause infection or allergic reaction. Ok to shower 24 hours after your surgery. Remove bandaids in 2 days and replace. You have steri strips (small white cloth strips) covering your incision- these will fall off ~1 week. Follow up in office with Dr. García in 2 weeks. ([phone]) No heavy lifting (>10-20lbs) or strenuous activity! Call Your Doctor If: -Your temperature exceeds 101.5? F -You experience excessive pain or swelling -You have an unexpected reaction to medication -You have excessive bleeding -You experience continued vomiting/nausea -Your incision begins to separate -Your incision shows signs of infection such as increased redness, swelling, excessive pain, drainage (light blood or clear fluid is normal) or heat Care Plan Goals: Return to baseline health and resume normal activities following recovery period. Health Concerns: acute appendicitis Plan of Treatment: s/p laparoscopic appendectomy f/u in office in 2 weeks Assessment: Doing well post op.
== END 2023-09-08 11:37 | disposition home or self-care (01) ==
LOC: HO.ED 07:41 → HO.SSS 11:08 → HO.SSSA 11:19 → HO.S3 14:11
PROVIDERS: Physician Assistant Medical; Admitting Provider Physician Assistant Surgical; Emergency Provider Emergency Medicine; PCP Internal Medicine; Visit Provider Surgery
PROC: 0DTJ4ZZ Resection of Appendix, Percutaneous Endoscopic Approach (ICD-10-PCS; CPT 44970; principal; 2023-09-07 12:30)
DX: K35.80 Unspecified acute appendicitis (principal); R10.31 Right lower quadrant pain; I10 Essential (primary) hypertension; R11.2 Nausea with vomiting, unspecified; R10.30 Lower abdominal pain, unspecified; F32.A Depression, unspecified
CPT/HCPCS: 44970; 36415; 74177; 80048; 80076; 81003; 83605; 83690; 85025; 86850; 86900; 86901; 87040; 88304; 96361; 96365; 96366; 96367; 96372; 96375; 96376; 99221; 99284; 99285; J0696; J1100; J1170; J2250; J2270; J2405; J2543; J2550; J2704; J2795; J3010; J7120; Q9967

== ENCOUNTER → 2023-09-07 11:12 | Outpatient (BNV) | payer BC, SELFPAY | PROVIDERS: Admitting Provider Physician Assistant Surgical; Emergency Provider Emergency Medicine; PCP Internal Medicine; Visit Provider Physician Assistant Surgical | DX: K35.80 Unspecified acute appendicitis (principal); Z90.49 Acquired absence of other specified parts of digestive tract | CPT/HCPCS: 44970; 99024; 99222; 99499 ==

== ENCOUNTER 2023-09-27 13:48 | Outpatient (AMB) | payer BC, SELFPAY ==
--- NOTE | 2023-09-27 13:56 | A.OFFVIS_ITS ---
Intake Visit Reasons: s/p lap appy Intake Note: This patient presents for a post-op assessment status post laparoscopic appendectomy. Patient c/o; reports no complaints pertaining to surgery. 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 She had undergone laparoscopic appendectomy last 09/07/2023. She tolerated the procedure well and was discharged on postop day 1. She says she is doing well at home she denies any particular complaints. She has good oral intake. COUNT INCLUDES THE [facility] Surgical History History of laparoscopic appendectomy (~09/07/23) History of Social History Patient Tobacco Use Status: Never used Tobacco Second Hand Smoke Exposure: No service: No Review of Systems Const Denies chills and Denies fever(s) Card Denies chest pain, Denies dyspnea and Denies dyspnea on exertion Resp Denies cough, Denies dyspnea and Denies dyspnea on exertion GI Denies hematochezia and Denies change in bowel habits Denies hematuria Musc Denies back pain and Denies limited range of motion Neuro Denies focal weakness and Denies convulsions Psych Denies depression and Denies mood swings Physical Exam Const General: comfortable and no acute distress GI Other: All incisions clean and dry Palpation (GI): Soft to palpation Assessment & Plan Assessment & Plan (1) S/P laparoscopic appendectomy: Code(s): Z90.49 - Acquired absence of other specified parts of digestive tract Category: Surgical Plan: She is doing very well. All incisions are clean and dry and well healed. She has good GI functions. She can therefore follow up on p.r.n. basis. I advised her to avoid lifting anything more than 20 lb for at least 1 more week. Coding Level of Care Code Global (25380) Diagnoses S/P laparoscopic appendectomy Z90.49
== END 2023-09-27 14:12 | disposition home or self-care (01) ==
PROVIDERS: PCP Internal Medicine; Visit Provider Surgery
DX: Z90.49 Acquired absence of other specified parts of digestive tract (principal)
CPT/HCPCS: 99024

== ENCOUNTER → 2023-09-27 13:48 | Outpatient (BNVA) | payer BC, SELFPAY | PROVIDERS: PCP Internal Medicine; Visit Provider Surgery ==

== ENCOUNTER 2024-12-20 13:12 | Emergency (ER) | payer BC, SELFPAY ==
--- NOTE | ~2024-12-20 | XR_ITS ---
EXAMINATION: XR KNEE, LEFT CLINICAL INFORMATION: lat/post pain and swelling COMPARISON: None available. TECHNIQUE: AP oblique and lateral views of the left knee. FINDINGS: No acute cortical disruption or gross malalignment. Sclerosis along the articular surface of the medial tibial plateau with asymmetric joint space narrowing involving mostly the lateral compartment. Small marginal osteophyte formation in the posterior superior and posterior inferior patella. Probable trace amount effusion, suprapatellar bursa joint No lytic or blastic lesions.. XR/XR knee LT 4V IMPRESSION: Mild tricompartmental osteoarthrosis/osteoarthritis involving mostly the lateral compartment. Electronically signed by: Norberto Mcclelland MD 12/20/2024 01:48 PM EDT
--- NOTE | ~2024-12-20 | US_ITS ---
EXAMINATION: US TRIPLEX LOWER EXTREMITY, LEFT CLINICAL INFORMATION: Posterior left knee pain and swelling COMPARISON: None available. TECHNIQUE: Color-flow triplex imaging with spectral analysis and compression Doppler were performed on the left lower extremity. FINDINGS: Respiratory variation, normal compression and augmented flow are noted throughout the left lower extremity. The visualized common femoral vein, superficial femoral vein, profunda femoral vein, popliteal vein and midcalf peroneal and posterior tibial venous segments show no evidence of deep venous thrombosis. . US/US venous duplex LE LT IMPRESSION: No evidence of deep venous thrombosis involving the left lower extremity. Electronically signed by: Juan Francisco Santillan MD 12/20/2024 01:59 PM EDT
[2024-12-20 13:26] VITALS: BP 134/61; PULSE 83; RESP 18; TEMP 36.7; O2SAT 99; BMI 34.4
--- NOTE | 2024-12-20 13:27 | ED.GENADULT ---
HPI - General Adult General Chief complaint: Extremity Injury, Lower Stated complaint: l knee inj Time Seen by Provider: 12/20/24 15:27 Source: patient, RN notes reviewed and old records reviewed Mode of arrival: ambulatory Limitations: no limitations History of Present Illness ED Provider: Mich HPI narrative: Patient is a 53y/o F presenting with atraumatic left knee pain and swelling since yesterday, began while walking around campus at work. States this was not an abnormal amount of walking for her. Pain worsened as day went on and interfered with sleep. Lateral and posterior pain. Some improvement with ibuprofen. Denies fevers. No personal or family history of blood clots. complaint: knee pain Onset (ago): day(s) Related Data Home Medications ?Medication ?Instructions ?Recorded ?Confirmed amlodipine 5 mg-benazepril 20 mg 1 cap PO DAILY 09/07/23 09/07/23 capsule bupropion HCl 300 mg 24 hr tablet, 300 mg PO DAILY 09/07/23 09/07/23 extended release cetirizine 10 mg tablet (Zyrtec) 10 mg PO DAILY PRN Allergy Symptoms 09/07/23 09/07/23 estradiol 0.01% (0.1 mg/gram) 1 g vaginal SUWE@0900 09/07/23 09/07/23 vaginal cream multivitamin 1 tab PO DAILY 09/07/23 09/07/23 Previous Rx's ?Medication ?Instructions ?Recorded docusate sodium 100 mg capsule 100 mg PO BID PRN constipation #30 09/07/23 (Colace) caps oxycodone 5 mg tablet 5 mg PO Q4H PRN pain (scale score 09/07/23 7-10) #24 tabs naproxen 500 mg tablet 500 mg PO BID #14 tabs 12/20/24 Allergies Allergy/AdvReac Type Severity Reaction Status Date / Time No Known Allergies Allergy Verified 12/20/24 13:29 Review of Systems Review of Systems: As per hPI Yes all other systems are reviewed and are negative Constitutional: Constitutional: Reports as per HPI [facility] Past Medical History Surgical History History of laparoscopic appendectomy (~09/07/23) History of Social History Social History Patient Tobacco Use Status: Never used Tobacco Second Hand Smoke Exposure: No Advance Directives: No Advance Directives Information Provided: Yes service: No Physical Exam ED Vital Signs: Vital Signs - 24 hr 12/20/24 13:26 Temperature 98.1 F Pulse Rate 83 Respiratory Rate 18 Blood Pressure 134/61 Pulse Oximetry 99 BMI result Body Mass Index 34.4 Vital signs have been reviewed and appear to be correct. Blood pressure normal. Heart rate normal. Respiratory rate normal. Temperature normal. Oxygen saturation normal. Const General: cooperative, healthy appearing and no acute distress Orientation/consciousness: oriented to person, oriented to place, oriented to time and patient oriented x3 Limitations: no limitations HENMT Head: Yes normocephalic and Yes atraumatic Ears: external ears normal General nose exam: Normal external nose present Face and sinus: Yes face symmetric Mouth: oropharynx normal and moist mucous membranes Throat: Yes uvula midline Eyes Pupils: Equal, round and reactive pupils present Neck Neck: Yes normal visual inspection and Yes supple Resp Effort & Inspection: normal respiratory effort and able to speak in complete sentences Auscultation: clear to auscultation bilaterally Cardio Rate: regular rate Rhythm: regular rhythm Heart sounds: S1 normal heart sound present and S2 normal heart sound present GI Palpation (GI): Soft to palpation and nontender Auscultation: normoactive bowel sounds General: Yes no CVA tenderness Back/Spine/Pelvis Back: no CVA tenderness Skin General skin exam: elasticity normal and turgor normal Neuro General: oriented to person, oriented to place, oriented to time, patient oriented x3, moves all extremities, no focal motor deficits and CN's II-XI intact bilaterally Cranial nerves: Yes Equal, round and reactive pupils present Cognition (Neuro): normal cognition Extrem General: Yes full ROM, Yes no pedal edema and Yes no calf tenderness Left lower extremity: knee Details: tenderness Location: of the popliteal fossa and of the lateral joint line, swelling (mild, diffuse), normal ROM, knee ligament exam normal and other (no erythema); no unusual warmth Psych Mental Status: mental status grossly normal Affect: normal affect Thought process: Normal thought process present Course Course Course Narrative: This is a rapid medical exam performed by Arron Epps NP: Additional HPI, ROS, PE not included below will be deferred to primary provider. Patient is a 53y/o F presenting with atraumatic left knee pain and swelling since yesterday, began while walking. Lateral and posterior pain. Plan: Xray, U/S, labs Medical Decision Making Medical Decision Making [facility] Narrative: Patient is a 53y/o F presenting with atraumatic left knee pain and swelling since yesterday, began while walking around campus at work. On exam patient is awake, A+Ox3, VS WNL, afebrile, normal neurological exam without focal deficits, physical exam findings as above. Given reported symptoms and physical exam findings, initial differential includes but is not limited to left knee strain, sprain, osteoarthritis, DVT. X-ray notable for osteoarthritis. U/S without evidence of DVT. My interpretation is in agreement with the radiologist's interpretation. Results discussed with patient and all questions answered. Patient provided with Tad bandage for support. Advised rest, ice, elevation. Will send prescription for naproxen, advised patient she can use Tylenol in combination with this. Will refer to orthopedics for further evaluation and management. Return precautions discussed. Patient verbalized understanding of and agreement with plan. Differential Diagnosis Differential Diagnoses: The differential diagnosis associated with the presentation includes [facility] Admission/Observation Consideration of admission/observation: Escalation of care including admission/observation considered Patient would have been admitted to the hospital had their clinical presentation warranted hospital admission. Lab Data [facility] Lab Attestation statement: I reviewed the patient's lab results. [facility] per [facility] 12/20/24 14:06 12/20/24 14:06 Labs: Lab Results 12/20/24 Range/Units 14:06 WBC 6.1 (4.8-10.8) X10*3/uL RBC 4.53 (4.20-5.50) X10*6/uL Hgb 13.8 (12.0-16.0) g/dl Hct 40.3 (37.0-47.0) % MCV 89.0 (80.0-98.0) fL MCH 30.5 (27.0-33.0) pg MCHC 34.2 (31.0-35.0) g/dl RDW 12.2 (11.0-16.0) % Plt Count 194 (160-400) X10*3/uL MPV 10.7 (9.4-12.3) fL Immature Gran % (Auto) 0.3 (0.0-0.4) % Neut % (Auto) 69.5 (45-73) % Lymph % (Auto) 20.3 (20-40) % [place] % (Auto) 6.1 (2-11) % Eos % (Auto) 3.1 (0-4) % Baso % (Auto) 0.7 (0-2) % Lymph # (Auto) 1.2 (1.2-4.9) X10*3/uL [place] # (Auto) 0.4 (0.1-1.2) X10*3/uL Eos # (Auto) 0.2 (0.0-0.4) X10*3/uL Baso # (Auto) 0.0 (0.0-0.2) X10*3/uL Abs Immat Gran (auto) 0.02 (0.00-0.03) X10*3/uL Absolute Neuts (auto) 4.3 (2.0-8.3) x10*3/uL Absolute Nucleated RBC 0.000 (0.0-0.012) X10*3/uL Nucleated RBC % (auto) 0.0 (0.0-0.2) /100WBC PT 10.2 L (10.9-12.4) SEC INR 0.9 (0.9-1.1) Sodium 141 (135-145) mmol/L Potassium 4.3 (3.3-5.1) mmol/L Chloride 108 (96-108) mmol/L Carbon Dioxide 26 (22-29) mmol/L Anion Gap 11 L (12-20) BUN 13 (9-16) mg/dL Creatinine 0.90 (0.5-1.4) mg/dL Estim Creat Clear Calc 76.8 Estimated GFR > 60 Random Glucose 104 (60-115) mg/dL Calcium 9.0 D (8.4-10.2) mg/dL Total Bilirubin 0.5 (0.0-1.0) mg/dL AST 24 (5-31) U/L ALT 36 H (0-31) U/L Alkaline Phosphatase 73 (39-117) U/L Total Protein 7.0 (6.5-8.0) g/dL Albumin 4.4 (3.5-5.0) g/dL Independent Interpretation I performed an independent interpretation of an: Plain X-Ray and Ultrasound Interpretation: X-ray notable for osteoarthritis. U/S without evidence of DVT. Radiology Impression Discussion of test interpretation with radiology: I have reviewed the radiologist's reading. Radiologist Impression: XR/XR knee LT 4V IMPRESSION: Mild tricompartmental osteoarthrosis/osteoarthritis involving mostly the lateral compartment. US/US venous duplex LE LT IMPRESSION: No evidence of deep venous thrombosis involving the left lower extremity. External Record Review External record reviewed: Inpatient record, Office record and Outpatient record Prescription Management I considered prescription management with: Pain Medication Discharge Plan Discharge Clinical Impression: Osteoarthritis of left knee Patient Disposition: Home, Self-Care Instructions: Osteoarthritis (DC), Knee Pain (ED), P.R.I.C.E. Treatment (ED) Additional Instructions: You were evaluated in the emergency department today for knee pain. Your ultrasound did not show evidence of a DVT, or blood clot in your leg. Your x-ray did show evidence of osteoarthritis. You are being prescribed naproxen which is an anti-inflammatory medication, take this as prescribed. Do not take the naproxen and combination with other NSAIDs (ibuprofen, Advil, Motrin, etc.). You can take Tylenol every 6 hours in addition to the naproxen. Elevate your leg while at rest. Apply ice for 10-15 minutes at a time several times daily and use the Tad bandage as needed for support. We recommend that you follow up with Orthopedics for further evaluation of your symptoms. Return to the emergency department if you develop new redness, warmth, fever, increased swelling or any other new or concerning symptoms. Prescriptions: New naproxen 500 mg tablet 500 mg PO BID Qty: 14 0RF No Action amlodipine-benazepril 5-20 mg capsule 1 cap PO DAILY estradiol 0.01 % (0.1 mg/gram) cream 1 g vaginal SUWE@0900 Rx Instructions: WE AND [place] bupropion HCl 300 mg tablet extended release 24 hr 300 mg PO DAILY multivitamin Tablet 1 tab PO DAILY cetirizine [Zyrtec] 10 mg Tablet 10 mg PO DAILY PRN (Reason: Allergy Symptoms) docusate sodium [Colace] 100 mg capsule 100 mg PO BID PRN (Reason: constipation) Qty: 30 0RF oxycodone 5 mg tablet 5 mg PO Q4H PRN (Reason: pain (scale score 7-10)) Qty: 24 0RF Rx Instructions: Partial Fill upon patient request. Referrals: [facility] [Provider Group] Clinical Impression: Osteoarthritis of left knee Print Language: Sammarinese
[2024-12-20 14:12] LABS: MANUAL DIFF FLAG NO
[2024-12-20 14:14] LABS: Hematocrit 40.3 % (37.0-47.0); Hemoglobin 13.8 g/dl (12.0-16.0); Imm Gran Abs Auto 0.02 X10*3/uL (0.00-0.03); Imm Gran Pct Auto 0.3 % (0.0-0.4); Lymphocytes Absolute Auto 1.2 X10*3/uL (1.2-4.9); Mean Corpuscular HGB Conc 34.2 g/dl (31.0-35.0); Mean Corpuscular Hemoglobin 30.5 pg (27.0-33.0); Mean Corpuscular Volume 89.0 fL (80.0-98.0); NRBC Abs Auto 0.000 X10*3/uL (0.0-0.012); NRBC Pct Auto 0.0 /100WBC (0.0-0.2); Platelet Count 194 X10*3/uL (160-400); Red Blood Count 4.53 X10*6/uL (4.20-5.50); White Blood Count 6.1 X10*3/uL (4.8-10.8)
[2024-12-20 14:17] LABS: INTERNATIONAL NORM RATIO 0.9 (0.9-1.1); Prothrombin Time 10.2 SEC (10.9-12.4)
[2024-12-20 14:25] LABS: Alanine Aminotransferase 36 U/L (0-31); Albumin Level 4.4 g/dL (3.5-5.0); Alkaline Phosphatase 73 U/L (39-117); Anion Gap 11 (12-20); Aspartate Amino Transferase 24 U/L (5-31); Blood Urea Nitrogen 13 mg/dL (9-16); Calcium 9.0 mg/dL (8.4-10.2); Carbon Dioxide 26 mmol/L (22-29); Chloride 108 mmol/L (96-108); Creatinine Clr Calc Pharmacy 76.8; Estimated Glomerular Filt Rate > 60; Potassium 4.3 mmol/L (3.3-5.1); Sodium 141 mmol/L (135-145); Total Protein 7.0 g/dL (6.5-8.0)
[2024-12-20 16:27] VITALS: BP 134/61; PULSE 83; RESP 18; TEMP 36.7; O2SAT 99
== END 2024-12-20 16:28 | disposition home or self-care (01) ==
PROVIDERS: Registered Nurse Emergency; Emergency Provider Emergency Medicine; PCP Internal Medicine
DX: M17.12 Unilateral primary osteoarthritis, left knee (principal)
CPT/HCPCS: 36415; 73564; 80053; 85025; 85610; 93971; 99282; 99284

== ENCOUNTER → 2024-12-20 13:28 | Outpatient (BNV) | payer BC, SELFPAY | PROVIDERS: PCP Internal Medicine; Visit Provider Radiology Diagnostic Radiology | DX: M25.562 Pain in left knee (principal); M25.462 Effusion, left knee | CPT/HCPCS: 73564; 93971 ==

== ENCOUNTER 2025-03-19 10:36 | Outpatient (REF) | payer BC, SELFPAY ==
--- NOTE | ~2025-03-19 | XR_ITS ---
EXAMINATION: XR KNEE, LEFT CLINICAL INFORMATION: M25.562 - Pain in left knee COMPARISON: 12/20/2024 TECHNIQUE: AP bilateral standing and lateral views of the left knee. FINDINGS: There is mild narrowing of the lateral greater than medial joint space. There are small marginal osteophytes involving the 3 knee compartments. No acute abnormality is evident. Single image of the right knee demonstrates moderate narrowing of medial compartment and mild narrowing of the tricompartmental marginal osteophytes. XR/XR knee LT 2V IMPRESSION: Mild left knee osteoarthritis, stable. Moderate right knee osteoarthritis. Electronically signed by: Juan Francisco Santillan MD 03/19/2025 02:51 PM EST
== END 2025-03-19 10:37 | disposition home or self-care (01) ==
LOC: HO.HOSX 10:36
PROVIDERS: Visit Provider Physician Assistant
DX: M17.0 Bilateral primary osteoarthritis of knee (principal)
CPT/HCPCS: 73560

== ENCOUNTER 2025-03-19 14:19 | Outpatient (AMB) | payer BC, SELFPAY ==
[2025-03-19 14:40] VITALS: BMI 34.0
--- NOTE | 2025-03-19 14:40 | A.OFFVIS_ITS ---
Vital Signs 03/19/25 14:40 Height 5 ft 3 in Weight 192 lb BMI 34.0 Intake Visit Reasons: EMERGENCY MEDICINE MEDICAL DIRECTOR: Left knee pain Intake Note: [place] is a 54 year old female who presents today as a new patient for an evaluation of left knee pain. Patient was [place] [facility] [facility] [place], reporting left knee pain and swelling since the day before her visit. Denies injury. Today patient reports that there is no more swelling in the left knee right knee also hurts difficult with starts sharp pain crackaling nosie no injections no surgrerys Allergies No Known Allergies Allergy (Verified 03/19/25 14:41) Medication List - Last Reconciled 03/19/25 by Giovanni Sibley PA-C amlodipine-benazepril 5-20 mg 1 cap PO DAILY bupropion HCl XL 300 mg PO DAILY cetirizine (Zyrtec) 10 mg PO DAILY PRN docusate sodium (Colace) 100 mg PO BID PRN multivitamin 1 tab PO DAILY HPI HPI EMERGENCY MEDICINE MEDICAL DIRECTOR: Left knee pain: Details: 54 yo female presents to the office today for left knee pain but also c/o right knee pain. She states she has been caring for her mom and was lifting her and felt pain in her left knee. She was seen in the ED, she was given naproxen which was helpful. She was wrapping the knee and elevating which was helpful. Since the knee has improved, she states she has some discomfort with stairs. She works on a campus with hills and she can walk the hills but the stairs cause a sharp pain in both knees, right worse than left. She does get a sensation the knee wants to give out. She feels it wants to hyperrexted. [facility] Surgical History History of laparoscopic appendectomy (~09/07/23) History of Social History Patient Tobacco Use Status: Never used Tobacco Second Hand Smoke Exposure: No service: No Review of Systems Const All systems reviewed & are unremarkable except as noted in HPI and below Physical Exam Vital Signs: BMI result Body Mass Index 34.0 Const General: cooperative and no acute distress Orientation/consciousness: patient oriented x3 Resp Effort & Inspection: normal respiratory effort and able to speak in complete sentences Cardio Peripheral pulses: Peripheral pulses 2+ throughout Neuro General: patient oriented x3 Extrem Other: Rt knee normal to inspection. No open wounds or abraisons. She has full ROM with medial joint line tenderness. Lt knee normal to inspection. No open wounds or abraisons. She has full ROm with tenderness over the patellar tendon. NVI bilaterally Results Reviewed Results Reviewed: Xrays were obtained in the office today and personally reviewed by me of the left knee show PF oa Assessment & Plan Assessment & Plan (1) Bilateral primary osteoarthritis of knee: Code(s): M17.0 - Bilateral primary osteoarthritis of knee Category: Medical Plan: We discussed options today which includes physical therapy to work on strengthening conditioning exercises. I did place an order and she will contact them to schedule an appointment. I also gave her a prescription for naproxen to take twice a day for 2 weeks for occasional flare-ups. I did educate her on the use of anti-inflammatories and side effects associated with them. If symptoms persist or worsen going forward she can contact our office and we can discuss further treatment options such as steroid injections otherwise the patient will follow up as needed. Orders: Orders PT Evaluation and Treatment Today M17.0 - Bilateral primary osteoarthritis of knee XR knee LT 2V Today M25.562 - Pain in left knee Medications: New naproxen 500 mg PO BID 60 tabs 1RF 30 days Discontinued oxycodone Partial Fill upon patient request. Discontinued Reason: Patient no longer taking 5 mg PO Q4H PRN 24 tabs 0RF pain (scale score 7-10) naproxen Discontinued Reason: Patient no longer taking 500 mg PO BID 14 tabs 0RF Patient Instructions: Prescribed NSAID for orthopedic pain related to . Reviewed patient history including no GI ulcer/bleed, CKD, CHF, CAD, liver disease, bleeding disorders, or NSAID allergy. Current medications reviewed with no interactions or duplicate NSAID use. Discussed orthopedic considerations, including short-term use being appropriate for soft-tissue pain and potential effects on fracture healing if a pplicable. Reviewed risks: GI irritation/bleeding, renal impairment, cardiovascular risk, and avoiding multiple NSAIDs. Instructed patient to take with food, avoid alcohol, and monitor for red-flag symptoms (black stools, hematemesis, severe abdominal pain, decreased urination, chest pain, SOB, worsening pain). 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 Patient verbalized understanding. Coding Level of Care Code Complex visit Add On G2211 Diagnoses Bilateral primary osteoarthritis of knee M17.0
--- OUTSIDE RECORDS SUMMARY | 2025-03-19 17:11 | XMS_ITS | Data Portability ---
Author Organization [facility] [address] Address [address] [place] [address] Assessment No assessment recorded. Plan of Treatment Reminders Order Date Submit Date Provider Last Modified By Organization Details Last Modified Time Details Appointments None recorded. Lab None recorded. Referral None recorded. Procedures None recorded. Surgeries None recorded. Imaging None recorded. Medication Orders prednisone 10 mg tablet 2022 023 [id number], [address] [place], [address], 12:43:04 Patient TargetsNo targets recorded. Patient Instructions Encounter Date Encounter Id Patient Instructions Last Modified By Organization Details Last Modified Time 10/10/2022 [id number] poison ludy, oak, and sumac: care instructions [email or web address] Not available 10/10/2022 12:43:02 Reason for Referral None Reported. Problems Name Problem SNOMED Code Status Onset Date Resolution Date Notes Provider Name and Address Organization Details Recorded Time Essential hypertension 20885000 Active 2022 IRIS COUVERTIE R null, [place] - [facility] 12:07:52 Seasonal allergy 881737880 Active 2022 IRIS COUVERTIE R null, PA - [facility] 12:08:00 Problem Notes None recorded. Procedures Surgical History Date Name Laterality Status Provider Name and Address Organization Details Recorded Time section completed JAMES ANGELES PA - [facility] 10/10/2022 12:08:08 Imaging Results None recorded. Procedure Notes None recorded. Medical Equipment None Reported. Allergies No known drug allergies Medications Name Sig Start Date Stop Date Status Note LastModified by Organization Details LastModified Time prednisone 10 mg tablet Take 4 tablets every day by oral route for 3 days. 2022 active Not Available Not Available Not Avai lable amlodipine active Not Available Not Av ailable Not Available Zyrtec active Not Available Not Availa ble Not Available bupropion HCl active Not Available Not Available Not Available triamcinolon e 0.1 % topical ointment and dimethicone 5 % topical cream active Not Available Not Available Not Available albuterol 90 mcg-budesoni de 80 mcg/actuatio n HFA aerosol inhaler Inhale by inhalation route. active Not Available Not Available No t Available Vitals Date Recorded Body temperature Oxygen saturation Heart rate Respiratory rate Systolic And Diastolic Provider Name and Address Organization Details Last Updated DateTime 3 98.4 [degF] 97 % 84 /min 18 /min 142/98 mm[Hg] JAMES Bolden PA - [facility] 12:09:33 Social History Question Answer Notes LastModified by Effective Measure Details LastModified Time Tobacco Smoking Status Never Smoker JAMES saavedra PA - [facility] 10/10/2022 12:08:16 What Is Your Water Source? City Information not available 10/10/2022 What Is Your Heat Source? Other Information not available 10/10/2022 Have You Had Direct Contact, Or Contact During Intimacy, With Monkeypox Rash, Scabs, Or Body Fluids From A Person With Monkeypox? No Information not available 10/10/2022 Have You Recently Traveled Abroad? No Information not available 10/10/2022 Sex: Unknown Functional Status Question Answer Note LastModified by Effective Measure Details LastModified Time Do you use any illicit or recreational drugs? No Information not available 10/10/2022 Do you or have you ever used any other forms of tobacco or nicotine? No Information not available 10/10/2022 What is your level of alcohol consumption? Occasional Information not available 10/10/2022 Mental Status None recorded. Family History Nothing Reported. Medical History No medical history recorded. Gynecological History Statement/Question Response Is there any chance of ? No Obstetrics History GPAL:G 0 P 0 0 0 0 Past Encounters Encounter ID Performer Location Encounter Start Date Encounter Closed Date Diagnosis/Indication Diagnosis SNOMED-CT Code Diagnosis ICD10 Code Diagnosis IMO Codes Diagnosis Note [id number] [address] [place] [address] 07/12/2018 14:53:53 07/12/2018 16:09:05 [id number] [address] [place] [address] 07/14/2019 08:25:41 07/14/2019 09:56:37 [id number] [address] [place] [address] 07/17/2015 09:49:31 07/17/2015 11:28:17 [id number] [address] [place] [address] 07/04/2016 10:58:39 07/04/2016 12:07:19 [id number] Gabo Casey MD [address] [place] [address] 10/10/2022 11:17:47 10/10/2022 12:43:38 Contact dermatitis [id number] L25.9 Poison ivyPoison Ludy Rash F ollow these important instructio ns: - Avoid further irritation of the skin where you have contact dermatitis . - Avoid further contact with the substance that appears to cause the dermatitis .- Put cool, moist cloths on the areas of skin with dermatitis . How can I help prevent contact dermatitis ? - If you know what substance caused the dermatitis , make sure that the substance is not one of the ingredient s in the cosmetic, cleaning, or other products that you use. If you are accidental ly exposed to the substance, wash the exposed area immediatel y and thoroughly . If you are allergic to nickel, find out what metal is in jewelry before you wear it. Whether or not you know what substances give you the rash, it may be helpful to: - Learn to recognize poison oak, poison ludy, and ragweed, and avoid contact with them.- Use hypoallerg enic cosmetics. - Pat your skin dry instead of rubbing it.- Try to avoid using solvents and chemicals, and wear heavy gloves when you must use them.- Use a machine ii engraver , or wear rubber gloves when you wash dishes. C all office, return to UC or PCP, or go to ER if: - Persisten ce and worsening of symptoms even after withdrawal of irritating materials calls for medical attention. - Develop new symptoms such as fevers, chills, body aches, or feelings of illness Health Concerns Section Related Observation LastModified by Organization Detai ls LastModified Time None Recorded Concern Status LastModified by Organization Details LastModified Time None Recorded Advance Directives Directive None Recorded Payers Insurance Date Sequence Insurance Name Policy Number Policy Zamora Covered Member ID Zamora Member ID Guarantor Name 10/10/2022 1 [facility] [id number] [place] Duke [id number] [place] [employer] Notes Date Note Type Note Provider Name and Address Organization Details Recorded Time 10/10/2022 text/html Rash/Skin LesionReported by PatientHPIFor quality, patient reportsitchy,red, andspreading. For context, patient reportsrecent outdoor activity(gardening recently). For location, patient reportschest,arms,ab domen, andlegs. For severity, patient reportsmoderate. For duration, patient reports3 days. For alleviating factors, patient reportsnothing gives relief. For associated symptoms, patient reportsno feverandno fatigue. Gabo Casey MD [address] [place], [address], [place] - [facility] 10/10/2022 14:59:03 OBGyn Episode No OBEpisode recorded.
== END 2025-03-19 15:12 | disposition home or self-care (01) ==
LOC: HO.HOS 14:20
PROVIDERS: PCP Internal Medicine; Visit Provider Physician Assistant
DX: M17.0 Bilateral primary osteoarthritis of knee (principal)
CPT/HCPCS: 99214

== ENCOUNTER → 2025-03-19 14:27 | Outpatient (BNV) | payer BC, SELFPAY | PROVIDERS: Visit Provider Radiology Diagnostic Radiology | DX: M17.0 Bilateral primary osteoarthritis of knee (principal) | CPT/HCPCS: 73560 ==